=== PATIENT | female | born 1990 | race Hispanic/Latino ===

== ENCOUNTER 2022-10-18 15:07 | Inpatient (IN) | payer OTHER ==
[~2022-10-18] VITALS: Ht 165.1 cm; Wt 63.0 kg
[2022-10-18 15:43] LABS: BASOPHILS % (AUTO) 0.4 % (0.0-5.0); EOSINOPHILS % (AUTO) 2.4 % (0.0-8.0); HEMATOCRIT 28.7 % (36-48); LYMPHOCYTES % (AUTO) 12.9 % (21.0-51.0); MEAN CORPUSCULAR HEMOGLOBIN 28.1 pg (27.0-33.0); MEAN CORPUSCULAR HGB CONC 32.8 g/dL (32.0-36.0); MEAN CORPUSCULAR VOLUME 85.7 fL (79-99); MONOCYTES % (AUTO) 7.3 % (3.0-13.0); NEUTROPHILS % (AUTO) 76.7 % (40.0-77.0); PLATELET COUNT (AUTO) 214 K/uL (130-400); RED BLOOD CELL COUNT(AUTO) 3.35 MIL/uL (4.00-5.50); RED CELL DISTRIBUTION WIDTH 13.9 % (11.0-15.5)
[2022-10-18 15:58] LABS: CREATININE 0.7 mg/dL (0.5-1.5); POTASSIUM 3.6 mmol/L (3.5-5.1)
[2022-10-18 16:07] LABS: ALBUMIN 3.6 g/dL (3.5-5.0); TOTAL PROTEIN, SERUM 7.6 g/dL (6.0-8.3)
[2022-10-18] MEDS ORDERED: ONDANSETRON 4MG INJ IVP STA (16:19)
[2022-10-18 16:20] LABS: APPEARANCE,URINE CLEAR (CLEAR); BILIRUBIN,URINE NEGATIVE (NEGATIVE); COLOR,URINE LIGHT-YELLOW (YELLOW); GLUCOSE, URINE (UA) NEGATIVE (NEGATIVE); KETONES,URINE NEGATIVE (NEGATIVE); LEUKOCYTE ESTERASE ,URINE 250 Leu/uL (NEGATIVE); NITRATE,URINE NEGATIVE (NEGATIVE); OCCULT BLOOD,URINE MODERATE (NEGATIVE); PROTEIN,URINE 30 mg/dL (NEGATIVE); UROBILINOGEN,URINE 0.2 mg/dL (0.2-1.0)
[2022-10-18 16:24] LABS: HCG,QUALITATIVE URINE NEGATIVE (NEGATIVE)
[2022-10-18 16:28] LABS: BACTERIA,URINE FEW /HPF (None Seen); MUCUS,URINE RARE LPF (None Seen); SQUAMOUS EPITHELIAL CELL,UR MOD /HPF (0-2); YEAST,URINE BUDDING RARE /HPF (None Seen)
[2022-10-18] MEDS ORDERED: MORPHINE 2 MG SYG IVP ONE (16:30)
[2022-10-18] MEDS ORDERED: PANTOPRAZOLE 40 MG/VIAL IVP STA (17:15)
[2022-10-18] MEDS ORDERED: LIDOCAINE HCL 2% VISCOUS 15 ML UDCUP PO ONE (17:30)
[2022-10-18] MEDS ORDERED: MAG/ALUM/SIMETH 30 ML UDCUP PO ONE (17:30)
[2022-10-18] MEDS ORDERED: MORPHINE 4 MG SYG IV PRN (19:00)
[2022-10-18] MEDS ORDERED: ONDANSETRON 4MG INJ IV PRN (19:00)
[2022-10-18] MEDS ORDERED: ACETAMINOPHEN 325 MG TAB PO PRN ×2 (19:00)
[2022-10-18] MEDS: FAMOTIDINE 20MG VIAL IV SCH (21:11)
[2022-10-18] MEDS: CEFTRIAXONE 1G VIAL IV SCH (21:11)
[2022-10-18] MEDS: LACTATED RINGERS 1000ML 1,000 ML IV SCH (21:12)
[2022-10-18 21:45] VITALS: BP 107/72
[2022-10-18 23:13] VITALS: BP 101/59
[2022-10-19 04:42] VITALS: BP 105/51
[2022-10-19 04:46] LABS: BASOPHILS % (AUTO) 0.4 % (0.0-5.0); EOSINOPHILS % (AUTO) 3.1 % (0.0-8.0); HEMATOCRIT 29.3 % (36-48); LYMPHOCYTES % (AUTO) 24.8 % (21.0-51.0); MEAN CORPUSCULAR HEMOGLOBIN 27.8 pg (27.0-33.0); MEAN CORPUSCULAR HGB CONC 31.1 g/dL (32.0-36.0); MEAN CORPUSCULAR VOLUME 89.6 fL (79-99); MONOCYTES % (AUTO) 10.1 % (3.0-13.0); NEUTROPHILS % (AUTO) 61.4 % (40.0-77.0); PLATELET COUNT (AUTO) 190 K/uL (130-400); RED BLOOD CELL COUNT(AUTO) 3.27 MIL/uL (4.00-5.50); WHITE BLOOD COUNT (AUTO) 5.6 K/uL (4.8-10.8)
[2022-10-19 05:04] LABS: CREATININE 0.8 mg/dL (0.5-1.5); PHOSPHORUS 3.8 mg/dL (2.5-4.9); POTASSIUM 3.8 mmol/L (3.5-5.1)
[2022-10-19 05:24] LABS: % IRON SATURATION 10.7 % (22-44)
[2022-10-19 07:35] VITALS: BP 100/63
[2022-10-19] MEDS: ENOXAPARIN SODIUM 40 MG/0.4 ML SYRINGE SQ SCH (09:00)
[2022-10-19] MEDS: FAMOTIDINE 20MG VIAL IV SCH ×2 (09:00→21:03)
[2022-10-19 11:35] VITALS: BP 133/72
[2022-10-19] MEDS: LACTATED RINGERS 1000ML 1,000 ML IV SCH ×2 (11:40→21:03)
[2022-10-19 15:35] VITALS: BP 106/66
[2022-10-19 20:04] VITALS: BP 92/58
[2022-10-19] MEDS: CEFTRIAXONE 1G VIAL IV SCH (21:03)
[2022-10-19 23:58] VITALS: BP 92/52
[2022-10-20] VITALS (24 sets, daily range): BP systolic 89–110; BP diastolic 50–68
[2022-10-20] MEDS: ENOXAPARIN SODIUM 40 MG/0.4 ML SYRINGE SQ SCH (07:31)
[2022-10-20] MEDS: FAMOTIDINE 20MG VIAL IV SCH ×2 (07:31→20:08)
[2022-10-20] MEDS ORDERED: CLINDAMYCIN IVPB 600MG/50ML 50 ML IV SCH (10:30)
[2022-10-20] MEDS ORDERED: LIDOCAINE HCL 1% 20 ML VIAL ONE (10:51)
[2022-10-20] MEDS ORDERED: BUPIVACAINE/PF 0.25% 10ML VIAL IJ ONE (10:51)
[2022-10-20] MEDS: CLINDAMYCIN 150 MG CAP PO SCH ×2 (11:32→20:08)
[2022-10-20] MEDS ORDERED: MIDAZOLAM HCL 1 MG/ML 2ML VIAL ONE (13:30)
[2022-10-20] MEDS ORDERED: ROCURONIUM 10MG/1ML SYR 10 MG/ML ML ONE (13:30)
[2022-10-20] MEDS ORDERED: FENTANYL CITRATE PF 50 MCG/1 ML 2ML VIAL ONE ×2 (13:30→14:05)
[2022-10-20] MEDS ORDERED: PROPOFOL 10 MG/ML 20ML VIAL IV ONE (13:30)
[2022-10-20] MEDS ORDERED: LIDOCAINE PF 100MG/5ML (2%) SYRINGE 5ML ONE (13:30)
[2022-10-20] MEDS ORDERED: DEXAMETHASONE SOD PHOSPHATE 10MG/ML 1ML VIAL ONE (13:52)
[2022-10-20] MEDS ORDERED: ONDANSETRON 4MG INJ ONE (13:53)
[2022-10-20] MEDS ORDERED: ROPIVACAINE 0.5% 5MG/ML 30ML IJ ONE (14:42)
[2022-10-20] MEDS ORDERED: GLYCOPYRROLATE 1 MG/5 ML SYRINGE ONE (14:42)
[2022-10-20] MEDS ORDERED: NEOSTIGMINE 5MG/5ML SYR IV ONE (14:44)
[2022-10-20] MEDS ORDERED: KETOROLAC 30MG VIAL (30MG/ML) ONE (15:05)
[2022-10-20] MEDS: MORPHINE 2 MG SYG IV PRN (22:27)
[2022-10-21] MEDS: CLINDAMYCIN 150 MG CAP PO SCH (03:10)
[2022-10-21 04:00] VITALS: BP 94/52
[2022-10-21 06:04] LABS: HEMATOCRIT 28.6 % (36-48); LYMPHOCYTES % (AUTO) 9.7 % (21.0-51.0); MEAN CORPUSCULAR HEMOGLOBIN 27.6 pg (27.0-33.0); MEAN CORPUSCULAR HGB CONC 32.2 g/dL (32.0-36.0); MEAN CORPUSCULAR VOLUME 85.9 fL (79-99); MONOCYTES % (AUTO) 6.5 % (3.0-13.0); NEUTROPHILS % (AUTO) 83.3 % (40.0-77.0); PLATELET COUNT (AUTO) 214 K/uL (130-400); RED BLOOD CELL COUNT(AUTO) 3.33 MIL/uL (4.00-5.50); WHITE BLOOD COUNT (AUTO) 7.5 K/uL (4.8-10.8)
[2022-10-21 06:19] LABS: ALBUMIN 3.2 g/dL (3.5-5.0); BILIRUBIN,DIRECT 0.1 mg/dL (0.0-0.3); CREATININE 0.6 mg/dL (0.5-1.5); TOTAL PROTEIN, SERUM 7.1 g/dL (6.0-8.3)
[2022-10-21 07:30] VITALS: BP 102/59
[2022-10-21] MEDS: FAMOTIDINE 20MG VIAL IV SCH (08:21)
[2022-10-21] MEDS: MORPHINE 2 MG SYG IV PRN (08:22)
[2022-10-21] MEDS: ENOXAPARIN SODIUM 40 MG/0.4 ML SYRINGE SQ SCH (08:22)
[2022-10-21] MEDS ORDERED: ACETAMINOPHEN WITH CODEINE 1 TAB TAB PO PRN (09:30)
== END 2022-10-21 11:25 | disposition home or self-care (01) | DRG 418 ==
LOC: EDH 15:07 → EDHIP 15:08 → 3DH 20:25
PROVIDERS: ADMIT Internal Medicine; ATTEND Internal Medicine
PROC: 0FT44ZZ Resection of Gallbladder, Percutaneous Endoscopic Approach (ICD-10-PCS; principal; 2022-10-20 13:31)
DX: K80.01 Calculus of gallbladder with acute cholecystitis with obstruction (principal); N39.0 Urinary tract infection, site not specified; Z20.822 Contact with and (suspected) exposure to COVID-19; D64.9 Anemia, unspecified; K66.0 Peritoneal adhesions (postprocedural) (postinfection); Z56.0 Unemployment, unspecified; Z59.7 Insufficient social insurance and welfare support
CPT/HCPCS: 36415; 71045; 74176; 76705; 78227; 80048; 80053; 81001; 81025; 82248; 83540; 83550; 83690; 83735; 84100; 84484; 85025; 86850; 86900; 86901; 87040; 87077; 87088; 87186; 87635; 93005; 96374; 96375; A9537; C9113; G0378; J0696; J1100; J1650; J1885; J2001; J2250; J2405; J2704; J2710; J2795; J3010; J3490; J7120

== ENCOUNTER 2023-02-09 15:09 | Emergency (ER) | payer OTHER ==
[~2023-02-09] VITALS: Ht 154.9 cm; Wt 63.5 kg
[2023-02-09 15:11] VITALS: BP 120/74
[2023-02-09 16:52] LABS: APPEARANCE,URINE CLOUDY (CLEAR); BILIRUBIN,URINE NEGATIVE (NEGATIVE); COLOR,URINE YELLOW (YELLOW); GLUCOSE, URINE (UA) NEGATIVE (NEGATIVE); KETONES,URINE NEGATIVE (NEGATIVE); LEUKOCYTE ESTERASE ,URINE 25 Leu/uL (NEGATIVE); NITRATE,URINE NEGATIVE (NEGATIVE); OCCULT BLOOD,URINE LARGE (NEGATIVE); PROTEIN,URINE 30 mg/dL (NEGATIVE); UROBILINOGEN,URINE 0.2 mg/dL (0.2-1.0)
[2023-02-09 16:56] LABS: HCG,QUALITATIVE URINE NEGATIVE (NEGATIVE)
[2023-02-09 17:31] LABS: BACTERIA,URINE RARE /HPF (None Seen); MUCUS,URINE RARE LPF (None Seen); RBC,URINE TNTC /HPF (0-1); SQUAMOUS EPITHELIAL CELL,UR MOD /HPF (0-2); YEAST,URINE BUDDING FEW /HPF (None Seen)
== END 2023-02-09 18:42 | disposition left against medical advice (07) ==
LOC: EDH 15:09
DX: R51.9 Headache, unspecified (principal); Z53.21 Procedure and treatment not carried out due to patient leaving prior to being seen by health care provider
CPT/HCPCS: 81001; 81025; 87088; 99281

== ENCOUNTER 2023-02-11 19:20 | Emergency (ER) | payer OTHER ==
[~2023-02-11] VITALS: Ht 154.9 cm; Wt 63.5 kg
[2023-02-11 19:21] VITALS: BP 132/71
[2023-02-11] MEDS ORDERED: KETOROLAC 30MG VIAL (30MG/ML) IM ONE (20:30)
[2023-02-11] MEDS ORDERED: MECLIZINE HCL 25 MG TABLET PO ONE (20:30)
[2023-02-11 20:34] LABS: APPEARANCE,URINE CLEAR (CLEAR); BILIRUBIN,URINE NEGATIVE (NEGATIVE); COLOR,URINE COLORLESS (YELLOW); GLUCOSE, URINE (UA) NEGATIVE (NEGATIVE); KETONES,URINE NEGATIVE (NEGATIVE); LEUKOCYTE ESTERASE ,URINE NEGATIVE Leu/uL (NEGATIVE); NITRATE,URINE NEGATIVE (NEGATIVE); OCCULT BLOOD,URINE LARGE (NEGATIVE); PH,URINE 7.5 (5.0-8.0); PROTEIN,URINE NEGATIVE (NEGATIVE); UROBILINOGEN,URINE 0.2 mg/dL (0.2-1.0)
[2023-02-11 20:47] LABS: HCG,QUALITATIVE URINE NEGATIVE (NEGATIVE)
[2023-02-11 20:53] LABS: BACTERIA,URINE FEW /HPF (None Seen); MUCUS,URINE RARE LPF (None Seen); SQUAMOUS EPITHELIAL CELL,UR FEW /HPF (0-2)
[2023-02-11] MEDS ORDERED: MECL-160 PO (22:11)
[2023-02-11] MEDS ORDERED: METO10TA41 PO (22:11)
== END 2023-02-11 22:17 | disposition home or self-care (01) ==
LOC: EDH 19:20
DX: G43.009 Migraine without aura, not intractable, without status migrainosus (principal); R42 Dizziness and giddiness; R11.2 Nausea with vomiting, unspecified; Z20.822 Contact with and (suspected) exposure to COVID-19
CPT/HCPCS: 99283; 87635; 87804 ×2; 81001; 81025; 96372; C9803; J1885

== ENCOUNTER 2023-02-14 18:38 | Emergency (ER) | payer OTHER ==
[~2023-02-14] VITALS: Ht 152.4 cm; Wt 63.5 kg
[~2023-02-14 18:38] MED LIST: MECL-160 PO; METO10TA41 PO
[2023-02-14 19:14] VITALS: BP 117/64
[2023-02-14] MEDS ORDERED: ONDANSETRON ODT 4MG TAB SL ONE (19:30)
[2023-02-14] MEDS ORDERED: PREDNISONE 20 MG TABLET PO ONE (19:30)
[2023-02-14] MEDS ORDERED: HYDROCODONE/ACETAMINOPHEN 5/325 MG TAB PO ONE (19:30)
[2023-02-14] MEDS ORDERED: IBUPROFEN 600 MG TABLET PO ONE (19:30)
[2023-02-14] MEDS ORDERED: DIAZEPAM 5 MG TABLET PO ONE (19:30)
[2023-02-14] MEDS ORDERED: HALOPERIDOL INJ 5 MG/ML VIAL IM SCH (22:00)
[2023-02-14] MEDS ORDERED: IBUP-2070 PO (22:42)
[2023-02-14] MEDS ORDERED: FIORIT PO (22:42)
== END 2023-02-14 22:50 | disposition home or self-care (01) ==
LOC: EDH 18:38
DX: G44.209 Tension-type headache, unspecified, not intractable (principal); Z90.49 Acquired absence of other specified parts of digestive tract; Z79.899 Other long term (current) drug therapy; Z98.890 Other specified postprocedural states
CPT/HCPCS: 99284; 96372; J1630